=== PATIENT | male | born 1995 | race Caucasian/White ===

== ENCOUNTER 2023-01-31 08:41 | Emergency (ER) | payer OTHER, SELFPAY ==
[2023-01-31 08:42] VITALS: BP 160/88; PULSE 75; RESP 18; TEMP 36.1; O2SAT 100; BMI 31.7
--- NOTE | 2023-01-31 09:01 | RAD_ITS ---
STUDY: X-RAY CHEST REASON FOR EXAM: Male, 28 years old. Chest pain TECHNIQUE: Single AP portable view of the chest. COMPARISON: None. FINDINGS: The lungs are clear and expanded. There is no demonstrated pleural abnormality. Normal size heart. Normal mediastinum and hillary. Normal visualized pulmonary arteries. Normal visualized aortic arch and descending thoracic aorta. Normal visualized thoracic spine. Normal visualized ribs, clavicles, and shoulders. There is no demonstrated abnormality of the visualized soft tissue structures of the upper abdomen. RAD/Chest 1 View (Portable) IMPRESSION: Normal x-ray examination of the chest. Electronically Signed: Bradley Ayala MD at 9:22 EDT ,
--- NOTE | 2023-01-31 09:03 | EDS_ITS ---
HPI History of Present Illness Chief Complaint: Shortness of Breath Narrative Narrative: 28-year-old male who denies significant past medical history presents with pleuritic chest pain and left shoulder plain with shortness of breath that has had since Tuesday, 4 days ago. He states it would last hours at a time. It was tender to touch when his tried to massage it, however, it is because somewhat more constant and deep in his left shoulder area when he takes a deep breath, he gets sharp, stabbing pain. He denies any fever or chills. No cough. No leg swelling. No family history of early coronary artery disease. No recent trauma. It is mainly in his left pectoral to left shoulder area/trapezius. PFSH PFSH Medical History no medical history Allergy/AdvReac Type Severity Reaction Status Date / Time No Known Allergies Allergy Verified 01/31/23 08:41 Social History Smoking Status: Never smoker ROS ROS ED ROS Narrative Constitutional: No fever, no chills. HEENT: No sore throat. No neck pain. No loss of vision. No rhinorrhea. Cardiovascular: Left-sided/shoulder/chest pain. No palpitations. No pedal edema. Respiratory: No cough, questionable shortness of breath. Abdominal: No abdominal pain. No nausea. No vomiting. Genitourinary: No dysuria. No hematuria. Musculoskeletal: No myalgias. No arthralgias. Neurologic: No headaches. No dizziness. No lightheadedness. Skin: No rash. No change in color. Psychiatric: No depression. No anxiety. EXAM Physical Exam Narrative Exam Narrative: Afebrile. Vital signs noted. HEENT: Normocephalic. Atraumatic. PERRL, EOMI. Neck soft and supple. No point tenderness or step off. Cardiovascular: Regular rate and rhythm. No murmurs, rubs, or gallops appreciated. Respiratory: No tachypnea. Lungs clear to auscultation bilaterally. Gastrointestinal: Abdomen soft, nontender, with normoactive bowel sounds. No rebound or guarding. Neurological: Awake. Alert. Nonfocal, nonlateralizing. Able to raise arms above head without difficulty. Skin: No rash. Normal color. No pallor. Musculoskeletal: No pedal edema. Full range of motion extremities. Const Vital Signs: 01/31/23 08:42 01/31/23 09:25 01/31/23 09:25 Temperature 96.9 F L Temperature Source Temporal Pulse Rate 75 Respiratory Rate 18 Respiratory Effort Normal Respiratory Pattern Normal Blood Pressure 160/88 H Blood Pressure Mean 112 Pulse Ox 100 98 Oxygen Delivery Method Room Air Room Air 01/31/23 11:23 Temperature Temperature Source Pulse Rate 63 Respiratory Rate 18 Respiratory Effort Respiratory Pattern Blood Pressure Blood Pressure Mean Pulse Ox 98 Oxygen Delivery Method Room Air MDM MDM MDM Narrative Medical decision making narrative: Concern is for acute coronary syndrome versus pulmonary embolism versus pneumothorax versus musculoskeletal trapezial pain. Comprehensive work-up was pursued. EKG was obtained and interpreted by myself which demonstrates normal sinus rhythm at 73 bpm with a sinus arrhythmia but no overt ectopy otherwise, no STEMI or acute ST changes. I do feel this helps rule out acute coronary syndrome/STEMI. I will obtain laboratory work in the form of CBC, BMP, and serial troponins. D-dimer will also be obtained. I reviewed his laboratory work and he has normal white count of 7.7, hemoglobin normal at 14.7, platelet count also normal at 258. D-dimer negative at 0.41. In review of his BMP, he has a glucose of 107 but a normal anion gap of 5. Chloride slightly elevated at 113 with normal BUN of 15 and creatinine normal at 0.9. Initial high-sensitivity troponin is 4. Delta troponin is also for for delta of 0. He has a low heart score. I interpreted his chest x-ray individually, and see no evidence of pneumonia or pneumothorax. I reviewed the radiology report which confirms my independent interpretation. At this point in time, I am unsure as to the cause of his left shoulder pain and pleuritic pain but it may be more musculoskeletal in nature. I do feel that pulmonary embolism has been ruled out by biomarkers as well as acute coronary syndrome/non-STEMI. He will follow-up with her primary care physician and do symptomatic treatment with [id number] analgesics. I feel he can be discharged safely home. Return instructions to the emergency department were reviewed. Disposition is discharged home in stable condition. History & Record Review Discussion w/independent historian: Patient Additional record(s) reviewed:: No prior records Lab Data Attestation: I reviewed the patient's lab results. Labs: Laboratory Results - last 24 hr 03/01/31/23 01/31/23 09:25 09:25 09:25 WBC 7.7 RBC 4.76 Hgb 14.7 Hct 42.6 MCV 89.5 MCH 30.9 MCHC 34.5 RDW Std Deviation 39.9 RDW Coeff of Juan Carlos 12.2 Plt Count 258 MPV 8.9 Immature Gran % (Auto) 0.400 Neut % (Auto) 63.5 Lymph % (Auto) 22.1 [place] % (Auto) 6.1 Eos % (Auto) 7.2 H Baso % (Auto) 0.7 Absolute Neuts (auto) 4.9 Absolute Lymphs (auto) 1.70 Nucleated RBC % 0 D-Dimer Quant (PE/DVT) 0.41 Sodium 144 Potassium 4.0 Chloride 113 H Carbon Dioxide 26.0 Anion Gap 5 BUN 15 Creatinine 0.92 Estim Creat Clear Calc 121.68 Est GFR (MDRD) Af Amer 128 Est GFR (MDRD) Non-Af 106 BUN/Creatinine Ratio 16.3 Glucose 107 H Calcium 9.4 Troponin I High Sens 4 01/31/23 11:45 WBC RBC Hgb Hct MCV MCH MCHC RDW Std Deviation RDW Coeff of [place] Plt Count MPV Immature Gran % (Auto) Neut % (Auto) Lymph % (Auto) [place] % (Auto) Eos % (Auto) Baso % (Auto) Absolute Neuts (auto) Absolute Lymphs (auto) Nucleated RBC % D-Dimer Quant (PE/DVT) Sodium Potassium Chloride Carbon Dioxide Anion Gap BUN Creatinine Estim Creat Clear Calc Est GFR (MDRD) Af Amer Est GFR (MDRD) Non-Af BUN/Creatinine Ratio Glucose Calcium Troponin I High Sens 4 Radiography Diagnostic Testing: Clinical Impression(s) from Imaging Studies Chest X-Ray 01/31/23 09:01 IMPRESSION: Normal x-ray examination of the chest. Electronically Signed: Bradley Ayala MD at 9:22 EDT , Discharge Plan Triage Chief Complaint: Shortness of Breath ED Provider: Neto Nieto Dx/Rx/DC Orders Clinical Impression: Acute pain of left shoulder, SOB (shortness of breath), Pleuritic pain Instructions: ED Chest Pain, Noncardiac, ED Dyspnea, ED Pain, Acute, Uncertain Cause Primary Care Provider: Care Physician,No Primary Referrals: David Lozano MD [Med Staff - [employer]] - As soon as possible Care Physician,No Primary [Primary Care Provider] - Disposition Disposition: Home, Self Care
--- NOTE | 2023-01-31 09:15 | EKG12_ITS ---
Test Reason : Blood Pressure : / mmHG Vent. Rate : 073 BPM Atrial Rate : 073 BPM P-R Int : 146 ms QRS Dur : 094 ms QT Int : 374 ms P-R-T Axes : 052 055 040 degrees QTc Int : 412 ms Normal sinus rhythm with sinus arrhythmia Normal ECG Confirmed by ANH ALEXANDRE, YUAN ([id number]), acquisitions editor JESSICA RICE ([id number]) on 02/01/2023 8:40:23 AM Referred By: JAMILAH Confirmed By:YUAN KAMARA MD
[2023-01-31 09:25] VITALS: O2SAT 98
[2023-01-31] MEDS: Aspirin 81 MG TAB.CHEW 324 MG PO (09:27)
[2023-01-31 09:37] LABS: Absolute Neutrophil Count 4.9 X10^3/uL (2.0-7.7); Basophil# 0.05 X10^3/uL; Basophil% 0.7 % (0-1); Eosinophil# 0.55 X10^3/uL; Eosinophils% 7.2 % (0-5); Hematocrit 42.6 % (40-54); Hemoglobin 14.7 g/dL (13.0-16.5); Lymphocyte % 22.1 % (19-41); Mean Corp Hgb Conc 34.5 g/dL (32-36); Mean Corpuscular Hgb 30.9 pg (27.0-32.0); Mean Corpuscular Volume 89.5 fL (80-94); Mean Platelet Vol. 8.9 fl (6.2-12.0); Monocyte# 0.47 X10^3/uL; Monocyte% 6.1 % (0-10); NRBC Flagged by Analyzer 0 % (0-5); Neutrophil # 4.88 X10^3/uL (2.7-7.7); Neutrophil % 63.5 % (47-70); Platelet Count 258 K/mm3 (150-450); RBC Distribution Width CV 12.2 % (11.6-14.6); RBC Distribution Width SD 39.9 fl (35.1-43.9); Red Blood Count 4.76 M/mm3 (4.6-6.2); White Blood Count 7.7 K/mm3 (4.4-11.0)
[2023-01-31 09:47] LABS: D-Dimer Quantitative (DVT/PE) 0.41 FEU/ug/m (0.27-0.49)
[2023-01-31 09:51] LABS: Anion Gap 5 (5-15); BUN 15 mg/dL (7-18); BUN/Creat Ratio 16.3 RATIO (10-20); Calcium,Total 9.4 mg/dL (8.5-10.1); Chloride 113 mmol/L (98-107); Creatinine, Serum 0.92 mg/dL (0.70-1.30); EST Glomerular Filtration Rate 106 mL/min (>60); Est Glom Filt Rate - Afr Amer 128 mL/min (>60); Estimated Creatinine Clearance 121.68 ml/min; Glucose 107 mg/dL (74-106); Sodium Level 144 mmol/L (136-145); Troponin-I HS (w/2H Reflex) 4 pg/mL (3.0-78.0)
[2023-01-31 11:23] VITALS: PULSE 63; RESP 18; O2SAT 98
[2023-01-31 11:33] LABS: Reflex Troponin-HS? (from REC) Y
[2023-01-31 12:07] LABS: Troponin-I HS 4 pg/mL (3.0-78.0)
[2023-01-31 12:27] VITALS: BP 137/81; PULSE 67; RESP 20; O2SAT 100
== END 2023-01-31 12:28 | disposition home or self-care (01) ==
PROVIDERS: Emergency Provider Emergency Medicine; Visit Provider Emergency Medicine
DX: R07.81 Pleurodynia (principal); M25.512 Pain in left shoulder; R06.02 Shortness of breath
CPT/HCPCS: 71045; 80048; 84484; 85025; 85379; 93005; 99284; A4216

== ENCOUNTER 2023-10-27 01:30 | Emergency (ER) | payer OTHER, SELFPAY ==
[2023-10-27 01:31] VITALS: BP 159/90; PULSE 99; RESP 18; TEMP 35.9; O2SAT 98; BMI 31.8
--- NOTE | 2023-10-27 02:00 | CT_ITS ---
EXAM: CT Abdomen And Pelvis W/O Contrast Injection HISTORY: Kidney Stone left sided back pain since Tuesday, increased today with nausea TECHNIQUE: Routine protocol CT abdomen and pelvis. IV Contrast: None.. Oral contrast: None. RADIATION DOSAGE (If Supplied By Facility): CTDIvol = ( 18.82 ) mGy, DLP = ( 1015.56 ) mGycm Individualized dose optimization techniques were used for this CT. COMPARISON: None. LIMITATIONS: None. FINDINGS: LOWER CHEST: Included lung bases are clear. LIVER: Grossly unremarkable. GALLBLADDER AND BILIARY TREE: Grossly unremarkable. PANCREAS: Grossly unremarkable. SPLEEN: Grossly unremarkable. ADRENAL GLANDS: Grossly unremarkable. KIDNEYS AND URETERS: No calculi demonstrated. No hydronephrosis. PERITONEUM: No free air. No free fluid. BOWEL: No bowel obstruction. APPENDIX: Visualized and unremarkable. No evidence of acute appendicitis. VESSELS: Abdominal aorta is normal caliber. REPRODUCTIVE ORGANS: Grossly unremarkable URINARY BLADDER: Grossly unremarkable. ABDOMINAL WALL: Unremarkable. BONES: No acute abnormalities. Moderate disc bulge at L5-S1, mild at L4-5. CT/Abdomen/Pelvis without Cont IMPRESSION: No acute findings. Disc bulge at L4-5 and L5-S1, uncertain if related to symptoms. MRI may be helpful for further evaluation if clinically indicated. Electronically Signed: Hanna Sadler MD at 2:54 EST ,
[2023-10-27 02:01] VITALS: BP 135/72; PULSE 65; RESP 18; O2SAT 98
--- NOTE | 2023-10-27 02:03 | EDS_ITS ---
HPI History of Present Illness Chief Complaint: Back Informant: patient Narrative Narrative: 28-year-old male presenting with worsening left flank?back pain. He notes it initially started 4 to 5 days ago. First it was worse with movements. The pain was most severe when it started. He denies any injury or precipitating factors for it. He states he was doing okay however tonight the pain woke him up from sleep. It has been constant, more severe but fluctuate in intensity. Associated nausea and dry heaves secondary to the pain. Also radiates to his abdomen. He denies any radiation of pain down to his groin or testicles. He denies any fever or urinary symptoms. Has been alternating ibuprofen and Tylenol but last had a dose Tuesday morning (is currently 2 AM today a.m.). He notes that he also recently finished amoxicillin for sinus infection which has been improving. Denies any significant cough or chest pain. Denies any shortness of breath. No fever or chills. No other complaints or concerns at this time. Denies any history of kidney stones. PFSH PFSH Home Medications cyclobenzaprine 10 mg tablet 10 mg PO TID PRN Muscle Spasm #20 TABLETS 10/27/23 [Rx Last Taken Unknown] ibuprofen 600 mg tablet 600 mg PO Q6H PRN PRN pain #20 TABLETS 10/27/23 [Rx Last Taken Unknown] ondansetron HCl 4 mg tablet 4 mg PO Q6H PRN nausea and vomiting 3 days #12 tabs 10/27/23 [Rx Last Taken Unknown] Allergy/AdvReac Type Severity Reaction Status Date / Time No Known Allergies Allergy Verified 10/27/23 01:31 Social History Smoking Status: Never smoker ROS ROS ED Constitutional Constitutional ED: Denies chills or fever(s) Cardiovascular Cardiovascular: Denies chest pain Respiratory/Chest Respiratory/Chest: Denies dyspnea Gastrointestinal Gastrointestinal: Reports abdominal pain and nausea; Denies constipation, diarrhea, melena or vomiting Genitourinary Genitourinary ED: Denies dysuria, hematuria or urinary frequency Musculoskeletal Musculoskeletal: Reports back pain; Denies arthralgias Integumentary Denies rash Neurologic Neurologic: Denies headache(s), paresthesias or weakness EXAM Physical Exam Const Vital Signs: 10/27/23 01:31 10/27/23 02:01 10/27/23 03:30 Temperature 96.7 F L Temperature Source Temporal Pulse Rate 99 65 58 L Respiratory Rate 18 18 18 Blood Pressure 159/90 H 135/72 H 146/80 H Blood Pressure Mean 113 93 102 Pulse Ox 98 98 99 Oxygen Delivery Method Room Air Room Air Positive well nourished and well developed General Appearance ED: well developed and NAD HEENT Reports moist mucous membranes Eyes PERRL Resp normal respiratory effort and clear to auscultation bilaterally Cardio regular rate, regular rhythm and no murmurs GI normal to inspection, nondistended, normoactive bowel sounds, soft to palpation and non-tender Back/Spine normal to inspection and no thoracic nor lumbar tenderness Back/Spine Narrative: Points to left CVA region as area of pain however is not reproducible on palpation General Back: Negative for CVA tenderness Thoracic Spine / Upper Back: Negative for paraspinal muscle tenderness Lumbar Spine / Lower Back: Negative for ROM limited Extremity normal to inspection Neuro oriented x3 Sensorium / Orientation: alert Psych mental status grossly normal Skin no rashes or lesions noted and no wounds MDM MDM MDM Narrative Medical decision making narrative: Patient evaluated for atraumatic left flank pain. Has associated nausea and dry heaves with it now. Differential includes renal colic, nephritis, muscle skele earnest pain. No overlying rash suggestive of shingles. No trauma so low suspicion for splenic laceration. Workup including CBC, BMP, urinalysis and CT flank study. Is given IV Toradol, fluids and Zofran in the emergency room. Patient patient is resting comfortably. He states he is feeling better. Workup largely normal. CBC, BMP and urinalysis unremarkable. CT of the abdomen pelvis does not show any acute findings such as obstructing kidney stone. He does have disc bulge noted L4-5 and L5-S1. This is lower than his area of pain but he is informed of these findings. I will be treated more for muscle skeletal pain with a prescription for Motrin 600 mg, Flexeril and Zofran. Is given return precautions. Does not have a primary care doctor so was given a referral for one. Patient verbalizes agreement understanding of this plan. Discharged home in stable condition. Lab Data Attestation: I reviewed the patient's lab results. Labs: Laboratory Results - last 24 hr 10/27/23 10/27/23 02:15 02:45 WBC 10.0 RBC 4.53 L Hgb 13.9 Hct 40.2 MCV 88.7 MCH 30.7 MCHC 34.6 RDW Std Deviation 39.1 RDW Coeff of Juan [place] 12.1 Plt Count 245 MPV 8.7 Immature Gran % (Auto) 0.400 Neut % (Auto) 73.0 H Lymph % (Auto) 16.7 L [place] % (Auto) 6.7 Eos % (Auto) 2.6 Baso % (Auto) 0.6 Absolute Neuts (auto) 7.3 Absolute Lymphs (auto) 1.67 Nucleated RBC % 0 Sodium 139 Potassium 4.1 Chloride 109 H Carbon Dioxide 28.0 Anion Gap 2 L BUN 16 Creatinine 0.97 Estim Creat Clear Calc 111.65 Est GFR (MDRD) Af Amer 120 Est GFR (MDRD) Non-Af 99 BUN/Creatinine Ratio 16.5 Glucose 108 H Calcium 9.0 Urine Color Yellow Urine Clarity Clear Urine pH 6.0 Ur Specific [place] 1.025 Urine Protein 15 H Urine Glucose (UA) Normal Urine Ketones Negative Urine Occult Blood 10 H Urine Nitrite Negative Urine Bilirubin Negative Urine Urobilinogen Normal Ur Leukocyte Esterase Negative Urine RBC 0 SEEN Urine WBC 0 SEEN Ur Squamous Epith Cells 0 SEEN Urine Bacteria 0 SEEN Urine Mucus 0 SEEN Radiography Diagnostic Testing: Clinical Impression(s) from Imaging Studies Abdomen/Pelvis CT 10/27/23 02:00 IMPRESSION: No acute findings. Disc bulge at L4-5 and L5-S1, uncertain if related to symptoms. MRI may be helpful for further evaluation if clinically indicated. Electronically Signed: Hanna Sadler MD at 2:54 EST , Discharge Plan Triage Chief Complaint: Back ED Provider: Lanette Llanes Dx/Rx/DC Orders Clinical Impression: Left flank pain, Nausea Instructions: ED Back Pain (Acute or Chronic), ED Flank Pain, Uncertain Cause Prescriptions: New ondansetron HCl 4 mg tablet 4 mg PO Q6H PRN (Reason: nausea and vomiting) 3 Days Qty: 12 0RF cyclobenzaprine 10 mg tablet 10 mg PO TID PRN (Reason: Muscle Spasm) Qty: 20 0RF ibuprofen 600 mg tablet 600 mg PO Q6H PRN PRN (Reason: pain) Qty: 20 0RF Primary Care Provider: Care Physician,No Primary Referrals: Geena Thomas MD [Med Staff - [employer]] - As soon as possible Care Physician,No Primary [Primary Care Provider] - Disposition Disposition: Home, Self Care Discharge Date/Time: 10/27/23 03:31
[2023-10-27] MEDS: Ketorolac 15 MG/ML Vial IV (02:12)
[2023-10-27] MEDS: Ondansetron 4 MG/2 ML Vial IV (02:12)
[2023-10-27] MEDS: 0.9% Normal Saline (1000mL) 1,000 ML 250 ML IV (02:13)
[2023-10-27 02:22] LABS: Absolute Lymphocyte Count 1.67 X10^3/uL (0.83-4.51); Absolute Neutrophil Count 7.3 X10^3/uL (2.0-7.7); Basophil# 0.06 X10^3/uL; Basophil% 0.6 % (0-1); Eosinophil# 0.26 X10^3/uL; Eosinophils% 2.6 % (0-5); Hematocrit 40.2 % (40-54); Hemoglobin 13.9 g/dL (13.0-16.5); Lymphocyte # 1.67 X10^3/ul (0.83-4.51); Lymphocyte % 16.7 % (19-41); Mean Corp Hgb Conc 34.6 g/dL (32-36); Mean Corpuscular Hgb 30.7 pg (27.0-32.0); Mean Corpuscular Volume 88.7 fL (80-94); Mean Platelet Vol. 8.7 fl (6.2-12.0); Monocyte# 0.67 X10^3/uL; Monocyte% 6.7 % (0-10); NRBC Flagged by Analyzer 0 % (0-5); Neutrophil # 7.33 X10^3/uL (2.7-7.7); Platelet Count 245 K/mm3 (150-450); RBC Distribution Width CV 12.1 % (11.6-14.6); RBC Distribution Width SD 39.1 fl (35.1-43.9); Red Blood Count 4.53 M/mm3 (4.6-6.2)
[2023-10-27 02:36] LABS: Anion Gap 2 (5-15); BUN 16 mg/dL (7-18); BUN/Creat Ratio 16.5 RATIO (10-20); Chloride 109 mmol/L (98-107); Creatinine, Serum 0.97 mg/dL (0.70-1.30); EST Glomerular Filtration Rate 99 mL/min (>60); Est Glom Filt Rate - Afr Amer 120 mL/min (>60); Estimated Creatinine Clearance 111.65 ml/min; Glucose 108 mg/dL (74-106); Potassium 4.1 mmol/L (3.5-5.1); Sodium Level 139 mmol/L (136-145)
[2023-10-27 02:51] LABS: Bacteria 0 SEEN /hpf (None Seen); Mucous, Urine 0 SEEN /hpf (<or=2+); Red Blood Cells-Urine 0 SEEN /hpf (0-5); Squamous Epithelial Cells - UA 0 SEEN /hpf (0-5); White Blood Cells 0 SEEN /hpf (0-5)
[2023-10-27 02:52] LABS: Color, Urine Yellow (Yellow); Glucose, Dipstick Normal (Normal); Ketone-Dipstick Negative (Negative); Leukocyte Esterase-Dipstick Negative /ul (Negative); Nitrite-Dipstick Negative (Negative); Occult Blood-Urine 10 /ul (Negative); Protein-Dipstick 15 mg/dl (Negative); Specific Gravity, Urine 1.025 (1.002-1.030); Urine Bilirubin Dipstick Negative (Negative); Urine Clarity Clear (Clear); Urine Urobilinogen Normal (Normal)
[2023-10-27 03:30] VITALS: BP 146/80; PULSE 58; RESP 18; O2SAT 99
== END 2023-10-27 03:31 | disposition home or self-care (01) ==
PROVIDERS: Emergency Provider Emergency Medicine; Visit Provider Emergency Medicine
DX: R10.9 Unspecified abdominal pain (principal); M54.9 Dorsalgia, unspecified; R11.2 Nausea with vomiting, unspecified
CPT/HCPCS: 74176; 80048; 81001; 85025; 96361; 96374; 96375; 99283; J7030; A4216; J2405